=== PATIENT | female | born 1995 | race Caucasian/White ===

== ENCOUNTER 2016-03-06 13:33 | Emergency (ER) | payer MEDICAID, OTHER ==
[2016-03-06 16:41] LABS: Appearance,Urine Clear (Clear); Bilirubin,Urine Negative (Negative); Glucose,Urine (UA) Negative (Negative); Ketones,Urine Negative (Negative); Leukocyte Esterase,Urine Negative (Negative); Nitrite,Urine Negative (Negative); Protein,Urine Negative (Negative); Specific Gravity,Urine 1.013 (1.001-1.035); UA Billing (MACRO vs. MICRO) CHEM; Urobilinogen,Urine <2.0 mg/dL (<2.0)
[2016-03-06] MEDS ORDERED: SODIUM CHLORIDE 0.9% 1,000 ML IV STA (16:56)
[2016-03-06] MEDS ORDERED: HYDROmorphone 1 MG/ML 1 ML SYRINGE IVP STA (16:59)
[2016-03-06] MEDS ORDERED: ONDANSETRON 4 MG/2 ML VIAL IVP STA (16:59)
--- NOTE | 2016-03-06 17:09 | ED ---
General Adult HPI - General Chief complaint: Abdominal Pain Stated complaint: abd pain Time Seen by Provider: 03/06/16 16:24 Source: patient, RN notes reviewed Mode of arrival: ambulatory - History of Present Illness Initial comments: Patient 20-year-old female who presents emergency room today with a chief complaint of right side abdominal pain that started yesterday. She does admit to pain that is "sharp" in nature to the right flank area. Patient states never had similar symptoms in the past. Does admit to feeling nauseated. Denies any other associated symptoms or complaints. Patient denies any recent fever, chills, shortness of breath, chest pain, vomiting, numbness or tingling, dysuria or hematuria, constipation or diarrhea, headaches or visual changes, or any other complaints. - Related Data Home Medications Medication Instructions Recorded Confirmed Albuterol Nebulized [Ventolin 2.5 mg INHALATION RT-Q4H PRN 08/20/14 03/06/16 Nebulized] Albuterol Inhaler [Ventolin Hfa 2 puff INHALATION RT-Q6H PRN 03/06/16 03/06/16 Inhaler] Allergies Allergy/AdvReac Type Severity Reaction Status Date / Time No Known Allergies Allergy Verified 03/06/16 18:35 Review of Systems ROS Statement: Those systems with pertinent positive or pertinent negative responses have been documented in the HPI. ROS Other: All systems not noted in ROS Statement are negative. Past Medical History Past Medical History: Asthma, Chest Pain / Angina History of Any Multi-Drug Resistant Organisms: None Reported Past Surgical History: Section, Orthopedic Surgery, Tonsillectomy Past Anesthesia/Blood Transfusion Reactions: No Reported Reaction Past Psychological History: Anxiety, Depression, Panic Disorder Smoking Status: Never smoker Past Alcohol Use History: None Reported Past Drug Use History: None Reported General Exam - General Exam Comments Initial Comments: General: The patient is awake and alert, in no distress, and does not appear acutely ill. Eye: Pupils are equal, round and reactive to light, extra-ocular movements are intact. No nystagmus. There is normal conjunctiva bilaterally. No signs of icterus. Ears, nose, mouth and throat: There are moist mucous membranes and no oral lesions. Neck: The neck is supple, there is no tenderness or JVD. Cardiovascular: There is a regular rate and rhythm. No murmur, rub or gallop is appreciated. Respiratory: Lungs are clear to auscultation, respirations are non-labored, breath sounds are equal. No wheezes, stridor, rales, or rhonchi. Gastrointestinal: Normal appearance abdomen. Normal bowel sounds. Abdomen soft on palpation. Patient does have tenderness right lower quadrant. No rebound tenderness. No Guarding. No CVA tenderness. Musculoskeletal: Normal ROM, no tenderness. Strength 5/5. Sensation intact. Pulses equal bilaterally 2+. Neurological: A&O x 3. CN II-XII intact, There are no obvious motor or sensory deficits. Coordination appears grossly intact. Speech is normal. Skin: Skin is warm and dry and no rashes or lesions are noted. Psychiatric: Cooperative, appropriate mood & affect, normal judgment. Course Vital Signs 03/06/16 14:26 Temperature 98.1 F Pulse Rate 65 Respiratory 18 Rate Blood Pressure 128/78 O2 Sat by Pulse 99 Oximetry EKG Findings - EKG Comments: EKG Findings:: EKG performed at 1734: Shows normal sinus rhythm at 83 bpm. MT interval 128. QRS 86. QT/QTC 384/451. No acute ST changes. Medical Decision Making - Medical Decision Making Patient's ultrasound of right lower quadrant shows no evidence of appendicitis. Transvaginal also shows small amount of free fluid adjacent to the right ovary. No solid adnexal masses normal uterus and endometrium. Serial waveforms seen in the ovarian artery disease with no evidence of ovarian torsion. Results were discussed with patient. Patient's labs been reviewed. Urinalysis negative for any sign of infection. Patient's white count negative. Lactic acid negative. Patient's vital stable. No fever. Results were discussed with the patient. There is some free fluid around the right ovary. Possibility of ovarian cyst. There is family history. Patient feels comfortable at this time with no pain. Options of early appendicitis were also discussed. Sinus symptoms were discussed. Options of CAT scan of the abdomen and pelvis were discussed. At this time he feel comfortable being discharged home for outpatient follow-up the family doctor in the next 1-2 days. Advised return if there is any fever or increase or worsening of symptoms. They state understanding and are in agreement with this plan. - Lab Data Result diagrams: 03/06/16 17:50 03/06/16 17:50 Lab Results 01/01/17 01/01/17 01/01/17 Range/Units 16:31 16:31 17:50 WBC (3.8-10.6) k/uL RBC (3.80-5.40) m/uL Hgb (11.4-16.0) gm/dL Hct (34.0-46.0) % MCV (80.0-100.0) fL MCH (25.0-35.0) pg MCHC (31.0-37.0) g/dL RDW (11.5-15.5) % Plt Count (150-450) k/uL Neutrophils % % Lymphocytes % % Monocytes % % Eosinophils % % Basophils % % Neutrophils # (1.3-7.7) k/uL Lymphocytes # (1.0-4.8) k/uL Monocytes # (0-1.0) k/uL Eosinophils # (0-0.7) k/uL Basophils # (0-0.2) k/uL Sodium 141 (137-145) mmol/L Potassium 4.4 (3.5-5.1) mmol/L Chloride 108 H (98-107) mmol/L Carbon Dioxide 25 (22-30) mmol/L Anion Gap 8 mmol/L BUN 9 (7-17) mg/dL Creatinine 0.60 (0.52-1.04) mg/dL Est GFR (MDRD) Af Amer >60 (>60 ml/min/1.73 sqM) Est GFR (MDRD) Non-Af >60 (>60 ml/min/1.73 sqM) Glucose 92 (74-99) mg/dL Plasma Lactic Acid Javier (0.7-2.0) mmol/L Calcium 9.3 (8.4-10.2) mg/dL Total Bilirubin 0.4 (0.2-1.3) mg/dL AST 15 (14-36) U/L ALT 24 (9-52) U/L Alkaline Phosphatase 45 (38-126) U/L Total Protein 6.7 (6.3-8.2) g/dL Albumin 4.2 (3.5-5.0) g/dL Amylase 35 (30-110) U/L Lipase 39 (23-300) U/L Urine Color Yellow Urine Appearance Clear (Clear) Urine pH 7.0 (5.0-8.0) Ur Specific Dupont 1.013 (1.001-1.035) Urine Protein Negative (Negative) Urine Glucose (UA) Negative (Negative) Urine Ketones Negative (Negative) Urine Blood Negative (Negative) Urine Nitrate Negative (Negative) Urine Bilirubin Negative (Negative) Urine Urobilinogen <2.0 (<2.0) mg/dL Ur Leukocyte Esterase Negative (Negative) Urine HCG, Qual Not Detected (Not Detectd) 03/06/16 03/06/16 Range/Units 17:50 17:50 WBC 5.4 (3.8-10.6) k/uL RBC 4.47 (3.80-5.40) m/uL Hgb 13.9 (11.4-16.0) gm/dL Hct 41.0 (34.0-46.0) % MCV 91.7 (80.0-100.0) fL MCH 31.1 (25.0-35.0) pg MCHC 33.9 (31.0-37.0) g/dL RDW 12.2 (11.5-15.5) % Plt Count 240 (150-450) k/uL Neutrophils % 60 % Lymphocytes % 31 % Monocytes % 6 % Eosinophils % 2 % Basophils % 0 % Neutrophils # 3.2 (1.3-7.7) k/uL Lymphocytes # 1.7 (1.0-4.8) k/uL Monocytes # 0.3 (0-1.0) k/uL Eosinophils # 0.1 (0-0.7) k/uL Basophils # 0.0 (0-0.2) k/uL Sodium (137-145) mmol/L Potassium (3.5-5.1) mmol/L Chloride (98-107) mmol/L Carbon Dioxide (22-30) mmol/L Anion Gap mmol/L BUN (7-17) mg/dL Creatinine (0.52-1.04) mg/dL Est GFR (MDRD) Af Amer (>60 ml/min/1.73 sqM) Est GFR (MDRD) Non-Af (>60 ml/min/1.73 sqM) Glucose (74-99) mg/dL Plasma Lactic Acid Javier 0.8 (0.7-2.0) mmol/L Calcium (8.4-10.2) mg/dL Total Bilirubin (0.2-1.3) mg/dL AST (14-36) U/L ALT (9-52) U/L Alkaline Phosphatase (38-126) U/L Total Protein (6.3-8.2) g/dL Albumin (3.5-5.0) g/dL Amylase (30-110) U/L Lipase (23-300) U/L Urine Color Urine Appearance (Clear) Urine pH (5.0-8.0) Ur Specific Dupont (1.001-1.035) Urine Protein (Negative) Urine Glucose (UA) (Negative) Urine Ketones (Negative) Urine Blood (Negative) Urine Nitrate (Negative) Urine Bilirubin (Negative) Urine Urobilinogen (<2.0) mg/dL Ur Leukocyte Esterase (Negative) Urine HCG, Qual (Not Detectd) Disposition Clinical Impression: Abdominal pain Disposition: HOME SELF-CARE Condition: Good Instructions: Abdominal Pain (ED) Additional Instructions: Please follow-up with family doctor in the next 2 days. Please return to emergency room for any fever. Please return to emergency room if the symptoms increase or worsen or for any other concerns. Time of Disposition: 19:24
[2016-03-06 18:17] LABS: ALT 24 U/L (9-52); AST 15 U/L (14-36); Alkaline Phosphatase 45 U/L (38-126); Amylase 35 U/L (30-110); Anion Gap 8 mmol/L; Blood Urea Nitrogen 9 mg/dL (7-17); Calcium 9.3 mg/dL (8.4-10.2); Carbon Dioxide 25 mmol/L (22-30); Chloride 108 mmol/L (98-107); Glucose 92 mg/dL (74-99); Non-African American GFR(MDRD) >60 (>60 ml/min/1.73 sqM); Potassium 4.4 mmol/L (3.5-5.1); Sodium 141 mmol/L (137-145); Total Bilirubin 0.4 mg/dL (0.2-1.3); Total Protein 6.7 g/dL (6.3-8.2)
--- NOTE | 2016-03-06 18:58 | US ---
EXAMINATION TYPE: US transvaginal DATE OF EXAM: 03/06/2016 6:33 PM COMPARISON: NONE CLINICAL HISTORY: RLQ pain, . TECHNIQUE: Transvaginal (TV) with color Doppler. Date of LMP: 02/25/2016 EXAM MEASUREMENTS: Uterus: 7.1 x 4.5 x 3.8 cm Endometrial Stripe: 0.9 cm Right Ovary: 3.4 x 2.3 x 1.9 cm Left Ovary: 3.x 2.0 x 1.6 cm TECHNOLOGIST IMPRESSION: 1. Uterus: wnl 2. Endometrium: wnl 3. Right Ovary: 4. Left Ovary: wnl Spectral, color and waveform doppler imaging shows good arterial and venous flow within the ovaries ; there is no evidence for ovarian torsion. 5. Bilateral Adnexa: free fluid seen adjacent to RO 6. Posterior cul-de-sac: free fluid IMPRESSION: There is a small amount of free fluid adjacent to the right ovary. No solid adnexal mass. Normal uterus and endometrium. Normal arterial waveform is seen in the ovarian arteries with no evid ence of ovarian torsion. Normal Values: Uterine Length: < 10cm Endometrium: Proliferative (Day 6 ? 14): 4 ? 6mm Secretory (Day 15 ? 28): 7 ? 14mm Post Menopausal (and not symptomatic): up to 8mm Post Menopausal (with vaginal bleeding): upper limits <5mm Post Menopausal with HRT: upper limits 8 - 15mm Post Menopausal with tamoxifen: < 6mm (although 50% of those receiving tamoxifen have been reported t o have thickness >8mm)
--- NOTE | 2016-03-06 18:59 | US ---
EXAMINATION TYPE: US abdomen APPY DATE OF EXAM: 03/06/2016 6:05 PM COMPARISON: NONE CLINICAL HISTORY: RLQ pain. APPENDIX AP Diameter (normal < 6mm): 2.4 mm Measured outer wall to outer wall. TECHNOLOGIST IMPRESSION: Compressible tubular structure seen in RLQ IMPRESSION: The appendix is not definitely seen. There is no evidence for appendicitis. No free flui d.
[2016-03-06 19:15] LABS: Basophils % (A) 0 %; CH 31.8; CHCM 34.8; Eosinophils # (A) 0.1 k/uL (0-0.7); Eosinophils % (A) 2 %; HDW 2.65; HGB 13.9 gm/dL (11.4-16.0); Luc % (Auto) 2; Lymphocytes # (A) 1.7 k/uL (1.0-4.8); Lymphocytes % (A) 31 %; MCH 31.1 pg (25.0-35.0); MCHC 33.9 g/dL (31.0-37.0); MCV 91.7 fL (80.0-100.0); Mean Platelet Volume 7.2; Monocytes # (A) 0.3 k/uL (0-1.0); Monocytes % (A) 6 %; Neutrophils # (A) 3.2 k/uL (1.3-7.7); Neutrophils % (A) 60 %; RBC 4.47 m/uL (3.80-5.40); RDW 12.2 % (11.5-15.5); WBC 5.4 k/uL (3.8-10.6); WBC (Perox) 5.77
[2016-03-06 19:39] VITALS: BP 122/58; PULSE 87; RESP 20; TEMP 98
== END 2016-03-06 19:40 | disposition home or self-care (01) ==
LOC: EC 13:33
DX: R10.9 Unspecified abdominal pain (principal)
CPT/HCPCS: 99284; 96374; 96375; 96361 ×2; 36415; 80053; 82150; 83605; 83690; 85025; 81003; 81025; 87086; 93975; 76705; 76830; J2405; J1170

== ENCOUNTER 2016-08-20 22:18 | Emergency (ER) | payer MEDICAID ==
[2016-08-20 22:35] VITALS: RESP 18
[2016-08-20] MEDS ORDERED: IPRATROPIUM-ALBUTEROL 3 ML NEB INHALATION STA (22:41)
--- NOTE | 2016-08-20 22:44 | ED ---
URI HPI - General Chief Complaint: Upper Respiratory Infection Stated Complaint: Cough Time Seen by Provider: 08/20/16 22:30 Source: patient, RN notes reviewed Mode of arrival: ambulatory Limitations: no limitations - History of Present Illness Initial Comments: Patient is a 21-year-old female presents emergency room for evaluation of cough and congestion. Patient states she has history of asthma. Patient states that this began about 5 days ago. Patient states she's been using up to her albuterol updrafts with little relief of symptoms. Patient states her last updraft was at 8:30 PM. Patient states cough and congestion has became worse. Patient states she feels short of breath. Patient denies smoking. Patient denies fevers or chills. Patient states she feels like she has a lot of drainage in the back of her throat which is causing her to cough. Patient states she is having slight throat pain. Patient denies headache, dizziness, ear pain, chest pain, abdominal pain, nausea, vomiting. Patient states she is up-to-date on immunizations. - Related Data Home Medications Medication Instructions Recorded Confirmed Albuterol Nebulized [Ventolin 2.5 mg INHALATION RT-Q4H PRN 08/20/14 03/06/16 Nebulized] Albuterol Inhaler [Ventolin Hfa 2 puff INHALATION RT-Q6H PRN 03/06/16 03/06/16 Inhaler] Previous Rx's Medication Instructions Recorded Azithromycin [Zithromax Z-pack] 250 mg PO DIRECTED #6 tab 08/20/16 predniSONE 50 mg PO DAILY #4 tab 08/20/16 Allergies Allergy/AdvReac Type Severity Reaction Status Date / Time No Known Allergies Allergy Verified 08/20/16 22:30 Review of Systems ROS Statement: Those systems with pertinent positive or pertinent negative responses have been documented in the HPI. ROS Other: All systems not noted in ROS Statement are negative. Past Medical History Past Medical History: Asthma, Chest Pain / Angina History of Any Multi-Drug Resistant Organisms: None Reported Past Surgical History: Section, Orthopedic Surgery, Tonsillectomy Past Anesthesia/Blood Transfusion Reactions: No Reported Reaction Past Psychological History: Anxiety, Depression, Panic Disorder Smoking Status: Never smoker Past Alcohol Use History: None Reported Past Drug Use History: None Reported General Exam - General Exam Comments Initial Comments: Sitting in exam room, no acute distress. Limitations: no limitations General appearance: alert, in no apparent distress Head exam: Present: atraumatic, normocephalic, normal inspection Eye exam: Present: normal appearance ENT exam: Present: normal exam, normal oropharynx, mucous membranes moist, TM's normal bilaterally, normal external ear exam Neck exam: Present: normal inspection Respiratory exam: Present: normal lung sounds bilaterally. Absent: respiratory distress Cardiovascular Exam: Present: regular rate, normal rhythm, normal heart sounds Extremities exam: Present: normal inspection Back exam: Present: normal inspection Neurological exam: Present: alert, oriented X3, CN II-XII intact, normal gait Psychiatric exam: Present: normal affect, normal mood Skin exam: Present: warm, dry, intact, normal color. Absent: rash Course Vital Signs 08/20/16 08/20/16 08/20/16 22:31 22:53 23:03 Temperature 99.0 F Pulse Rate 83 84 84 Respiratory 18 Rate Blood Pressure 144/82 O2 Sat by Pulse 97 Oximetry Medical Decision Making - Medical Decision Making Patient's 24-year-old female presents emergency room for evaluation of cough and congestion. Patient has a history of asthma. Chest x-ray shows no acute findings. Patient states she is feeling better after nebulized treatment. Will treat patient for bronchitis. Patient placed on antibiotics and steroids. Patient states she understands everything that was discussed with her. Return parameters discussed. Case discussed with Dr. Cardoso. - Radiology Data Radiology results: report reviewed, image reviewed Disposition Clinical Impression: Asthmatic bronchitis Disposition: HOME SELF-CARE Condition: Good Instructions: Acute Bronchitis (ED) Additional Instructions: Take medications as directed. Continue with nebulizer updrafts every 4-6 hours. Please follow up with primary care provider in 1-2 days. If any new symptom arises or symptoms, return to ER as soon as possible. Prescriptions: Azithromycin [Zithromax Z-pack] 250 mg PO DIRECTED #6 tab predniSONE 50 mg PO DAILY #4 tab Referrals: Cj Holliday MD [Primary Care Provider] - 1-2 days Time of Disposition: 23:22
--- NOTE | 2016-08-20 23:16 | XR ---
INDICATION: Chest pain COMPARISON: CXR 08/20/14 FINDINGS: Frontal and lateral views of the chest are obtained. The cardiomediastinal silhouette is within normal limits. Lungs are clear. No pleural effusions. Bony elements are within normal limits. IMPRESSION: No radiographic evidence acute cardiopulmonary disease.
[2016-08-20] MEDS ORDERED: predniSONE 50 MG TAB PO STA (23:24)
[2016-08-20 23:55] VITALS: BP 126/62; PULSE 95; TEMP 98.2
== END 2016-08-20 23:53 | disposition home or self-care (01) ==
LOC: EC 22:18
DX: J45.909 Unspecified asthma, uncomplicated (principal)
CPT/HCPCS: 94640; 71020; 99283; J7512

== ENCOUNTER → 2016-08-30 | Outpatient (CLI) | payer MEDICAID ==
[2016-08-30 11:26] LABS: Basophils # (A) 0.1 k/uL (0-0.2); Basophils % (A) 0 %; CH 30.8; CHCM 33.8; Eosinophils # (A) 0.1 k/uL (0-0.7); Eosinophils % (A) 1 %; HCT 42.1 % (34.0-46.0); HDW 2.61; HGB 14.7 gm/dL (11.4-16.0); Luc # (Auto) 0.21; Luc % (Auto) 2; Lymphocytes % (A) 27 %; MCHC 34.9 g/dL (31.0-37.0); MCV 91.5 fL (80.0-100.0); Mean Platelet Volume 7.1; Monocytes # (A) 0.5 k/uL (0-1.0); Monocytes % (A) 4 %; Neutrophils # (A) 7.6 k/uL (1.3-7.7); Neutrophils % (A) 66 %; WBC 11.4 k/uL (3.8-10.6); WBC (Perox) 11.89
[2016-08-30 12:00] LABS: ALT 30 U/L (9-52); AST 17 U/L (14-36); Alkaline Phosphatase 50 U/L (38-126); Anion Gap 10 mmol/L; Blood Urea Nitrogen 14 mg/dL (7-17); Calcium 9.8 mg/dL (8.4-10.2); Carbon Dioxide 28 mmol/L (22-30); Chloride 104 mmol/L (98-107); Cholesterol 167 mg/dL (<200); Glucose 88 mg/dL (74-99); HDL Cholesterol 57 mg/dL (40-60); Non-African American GFR(MDRD) >60 (>60 ml/min/1.73 sqM); Potassium 4.6 mmol/L (3.5-5.1); Sodium 142 mmol/L (137-145); Total Bilirubin 0.7 mg/dL (0.2-1.3); Total Protein 7.2 g/dL (6.3-8.2); Triglycerides 134 mg/dL (<150)
== END | disposition home or self-care (01) ==
LOC: LABWHC1 10:57
PROVIDERS: ATTEND Physician Assistant
DX: Z00.00 Encounter for general adult medical examination without abnormal findings (principal)
CPT/HCPCS: 36415; 80053; 80061; 84439; 84443; 85025

== ENCOUNTER 2016-11-16 16:38 | Emergency (ER) | payer MEDICAID ==
[2016-11-16 16:54] VITALS: BP 132/83; PULSE 91; RESP 18; TEMP 98
--- NOTE | 2016-11-16 16:57 | ED ---
General Adult HPI - General Chief complaint: Extremity Injury, Upper Stated complaint: Hand Injury-[facility] Time Seen by Provider: 11/16/16 16:51 Source: patient, RN notes reviewed Mode of arrival: ambulatory Limitations: no limitations - History of Present Illness Initial comments: 20-year-old female presents to the emergency Department chief complaint of left thumb injury. Patient hit with a hammer at work today. Patient states it hurts to move or touch the area. Patient denies any other injuries from the incident. Patient states this was an accident. Patient denies any recent fever , chills, shortness of breath, chest pain, back pain, abdominal pain, nausea vomiting, numbness or tingling, dysuria or hematuria, constipation or diarrhea, headaches or visual changes, or any other current symptoms. - Related Data Home Medications Medication Instructions Recorded Confirmed Albuterol Nebulized [Ventolin 2.5 mg INHALATION RT-Q4H PRN 08/20/14 03/06/16 Nebulized] Albuterol Inhaler [Ventolin Hfa 2 puff INHALATION RT-Q6H PRN 03/06/16 03/06/16 Inhaler] Previous Rx's Medication Instructions Recorded Azithromycin [Zithromax Z-pack] 250 mg PO DIRECTED #6 tab 08/20/16 predniSONE 50 mg PO DAILY #4 tab 08/20/16 Allergies Allergy/AdvReac Type Severity Reaction Status Date / Time No Known Allergies Allergy Verified 11/16/16 16:49 Review of Systems ROS Statement: Those systems with pertinent positive or pertinent negative responses have been documented in the HPI. ROS Other: All systems not noted in ROS Statement are negative. Past Medical History Past Medical History: Asthma, Chest Pain / Angina History of Any Multi-Drug Resistant Organisms: None Reported Past Surgical History: Section, Orthopedic Surgery, Tonsillectomy Past Anesthesia/Blood Transfusion Reactions: No Reported Reaction Past Psychological History: Anxiety, Depression, Panic Disorder Smoking Status: Never smoker Past Alcohol Use History: None Reported Past Drug Use History: None Reported General Exam - General Exam Comments Initial Comments: General: The patient is awake and alert, in no distress, and does not appear acutely ill. Neck: The neck is supple, there is no tenderness. Cardiovascular: There is a regular rate and rhythm. No murmur, rub or gallop is appreciated. Respiratory: Lungs are clear to auscultation, respirations are non-labored, breath sounds are equal. No wheezes, stridor, rales, or rhonchi. Musculoskeletal: Sensation intact with 2+ pulses of left friction. Frontal motion of left wrist. Tenderness to patient throughout the left thumb. Find worsen all digits. No swelling or deformity noted. Neurological: CN II-XII intact, There are no obvious motor or sensory deficits. Coordination appears grossly intact. Speech is normal. Skin: Skin is warm and dry and no rashes or lesions are noted. Psychiatric: Normal mood and affect. Limitations: no limitations Course Vital Signs 11/16/16 16:46 Temperature 98.0 F Pulse Rate 91 Respiratory 18 Rate Blood Pressure 132/83 O2 Sat by Pulse 96 Oximetry Medical Decision Making - Medical Decision Making 21-year-old female presents for left thumb pain from a hammer. This time patient underwent an x-ray. This time all the patient's questions have been answered. We discussed follow-up return parameters and all the patient's concerns. He stated the Neal and plan. This will be discharged home. - Radiology Data Radiology results: report reviewed, image reviewed Disposition Clinical Impression: Contusion of left thumb Disposition: HOME SELF-CARE Condition: Stable Instructions: Contusion in Adults (ED) Additional Instructions: Please use medication as discussed. Please follow up with family doctor if symptoms have not improved over the next two days. Please return to the emergency room if your symptoms increase or worsen or for any other concerns. Referrals: Cj Holliday MD [Primary Care Provider] - 1-2 days Time of Disposition: 17:29
--- NOTE | 2016-11-16 17:17 | XR ---
EXAMINATION TYPE: XR hand complete LT DATE OF EXAM: 11/16/2016 COMPARISON: NONE HISTORY: Injury TECHNIQUE: 3 views FINDINGS: I see no fracture nor dislocation. Metacarpals are intact. There are no erosions. IMPRESSION: Negative left hand exam. The thumb appears intact.
== END 2016-11-16 17:42 | disposition home or self-care (01) ==
LOC: EC 16:38
DX: S60.012A Contusion of left thumb without damage to nail, initial encounter (principal); W22.8XXA Striking against or struck by other objects, initial encounter; Y92.69 Other specified industrial and construction area as the place of occurrence of the external cause; Y99.0 Civilian activity done for income or pay
CPT/HCPCS: 99283

== ENCOUNTER 2018-04-28 16:32 | Emergency (ER) | payer BC, MEDICAID ==
[2018-04-28] MEDS ORDERED: KETOROLAC 30 MG/ML 1 ML VIAL IVP STA (16:53)
[2018-04-28] MEDS ORDERED: SODIUM CHLORIDE 0.9% 1,000 ML IV ONE (16:53)
--- NOTE | 2018-04-28 16:55 | ED ---
Chest Pain HPI - General Chief Complaint: Chest Pain Stated Complaint: Chest pain, rapid heart rate Time Seen by Provider: 04/28/18 16:47 Source: patient Mode of arrival: wheelchair Limitations: no limitations - History of Present Illness Initial Comments: 22-year-old healthy female presenting with palpitations and chest pain that began 5 hours prior. She states has been accompanied with shortness of breath. She denies any URI symptoms or fever at home. 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 Patient denies any history of DVT, PE, active cancer, recent surgery, hormone therapy. Denies any caffeine, drug use, stimulants, smoking. Mother admits to a family history of non-provoked blood clots. - Related Data Home Medications Medication Instructions Recorded Confirmed Albuterol Nebulized [Ventolin 2.5 mg INHALATION RT-Q4H PRN 08/20/14 03/06/16 Nebulized] Albuterol Inhaler [Ventolin Hfa 2 puff INHALATION RT-Q6H PRN 03/06/16 03/06/16 Inhaler] Previous Rx's Medication Instructions Recorded Azithromycin [Zithromax Z-pack] 250 mg PO DIRECTED #6 tab 08/20/16 predniSONE 50 mg PO DAILY #4 tab 08/20/16 Allergies Allergy/AdvReac Type Severity Reaction Status Date / Time No Known Allergies Allergy Verified 04/28/18 16:38 Review of Systems ROS Statement: Those systems with pertinent positive or pertinent negative responses have been documented in the HPI. Review of Systems Constitutional: Denies fever, chills Eyes: Denies change in vision, Denies pain Ears, nose, mouth, throat: Denies headaches, Denies sore throat Cardiovascular: Positive chest pain. Positive palpitations Respiratory: Denies shortness of breath, Denies cough Gastrointestinal: Denies abdominal pain. Denies nausea, vomiting, diarrhea. Genitourinary: Denies hematuria, Denies infections Musculoskeletal: Denies pain, Denies swelling Integumentary: Denies rash Neurological: Denies headache, focal weakness, focal numbness Psychiatric: Denies anxiety, Denies depression Hematologic/Lymphatic: Denies easy bleeding or bruising ROS Other: All systems not noted in ROS Statement are negative. Past Medical History Past Medical History: Asthma, Chest Pain / Angina History of Any Multi-Drug Resistant Organisms: None Reported Past Surgical History: Section, Orthopedic Surgery, Tonsillectomy Past Anesthesia/Blood Transfusion Reactions: No Reported Reaction Past Psychological History: Anxiety, Depression, Panic Disorder Smoking Status: Never smoker Past Alcohol Use History: None Reported Past Drug Use History: None Reported General Exam - General Exam Comments Initial Comments: General: Awake, alert, No acute Distress HENT: Normocephalic. Atraumatic Eyes: PERRL. EOMI. No scleral icterus. No injected conjunctiva Neck: Full ROM Chest/Lungs: Clear to auscultation bilaterally. No wheezing, rhonchi, or rales Cardiac: Sinus tachycardia. No murmurs or rubs Abdomen/GI: Soft, nontender, nondistended. No rebound, guarding, or rigidity. Musculoskeletal: Full ROM Skin: Warm, dry, intact Neurologic: A/Ox3, no weakness, no sensory deficit, no abnormal gait, no coordination deficit Limitations: no limitations Course Vital Signs 04/28/18 04/28/18 16:36 19:15 Temperature 99.7 F H 99.8 F H Pulse Rate 108 H 79 Respiratory 18 16 Rate Blood Pressure 125/71 112/64 O2 Sat by Pulse 100 99 Oximetry Chest Pain MDM - MDM 22-year-old female presenting with palpitations and chest pain. Initial exam the patient is awake alert and she has an elevated temperature and is mildly tachycardic. She denies any dysuria, cough, sore throat. Her EKG shows normal sinus rhythm at a rate of 93 bpm without any evidence of [id number] or other abnormality. There is no ST segment elevation or depression. Her laboratory workup revealed an elevated d-dimer. Her troponin is negative and her heart score is 0. She underwent CTA which was also negative as well. Her symptoms resolved while in the department. At this time no further emergent workup indicated. Patient is stable for outpatient follow-up this week with her PCP understands return to ER precautions. - Wells Criteria Clinical Symptoms of DVT: (0) No No Alternative Diagnosis: (0) No Immobilization of Surgery in Previous 4 Weeks: (0) No Previous DVT/PE: (0) No Hemoptysis: (0) No Malignancy: (0) No Disposition Clinical Impression: Heart palpitations, Chest pain Disposition: HOME SELF-CARE Condition: Good Instructions (If sedation given, give patient instructions): Chest Pain (ED), Heart Palpitations (ED) Is patient prescribed a controlled substance at d/c from ED?: No Referrals: Cj Holliday MD [Primary Care Provider] - 1-2 days
[2018-04-28 17:44] LABS: Basophils % (A) 0 %; Eosinophils % (A) 1 %; HGB 13.9 gm/dL (11.4-16.0); Lymphocytes # (A) 0.6 k/uL (1.0-4.8); Lymphocytes % (A) 10 %; MCH 30.9 pg (25.0-35.0); MCHC 33.1 g/dL (31.0-37.0); MCV 93.4 fL (80.0-100.0); Mean Platelet Volume 7.3; Monocytes # (A) 0.3 k/uL (0-1.0); Monocytes % (A) 5 %; Neutrophils # (A) 4.7 k/uL (1.3-7.7); Neutrophils % (A) 84 %; Platelet Count 139 k/uL (150-450); RDW 12.5 % (11.5-15.5); WBC 5.6 k/uL (3.8-10.6)
[2018-04-28 17:49] LABS: Anion Gap 9 mmol/L; Blood Urea Nitrogen 10 mg/dL (7-17); Calcium 9.3 mg/dL (8.4-10.2); Carbon Dioxide 25 mmol/L (22-30); Chloride 105 mmol/L (98-107); Glucose 110 mg/dL (74-99); Potassium 4.2 mmol/L (3.5-5.1); Sodium 139 mmol/L (137-145)
--- NOTE | 2018-04-28 19:03 | XR ---
EXAMINATION TYPE: XR chest 2V DATE OF EXAM: 04/28/2018 COMPARISON: NONE HISTORY: Chest pain TECHNIQUE: Frontal and lateral views of the chest are obtained. FINDINGS: There is no focal air space opacity, pleural effusion, or pneumothorax seen. The cardiac silhouette size is within normal limits. The osseous structures are intact. IMPRESSION: No acute cardiopulmonary process.
--- NOTE | 2018-04-28 19:06 | CT ---
EXAMINATION TYPE: CT chest angio for PE DATE OF EXAM: 04/28/2018 COMPARISON: NONE HISTORY: Chest pain CT DLP: 158.3 mGycm. Automated Exposure Control for Dose Reduction was Utilized. CONTRAST: CTA scan of the thorax is performed with IV Contrast, patient injected with 100 mL of Isovue 370, pul monary embolism protocol. MIP Images are created on CT scanner and reviewed. FINDINGS: LUNGS: The lungs are grossly clear, there is no concerning parenchymal mass or nodule identified. T here is no pleural effusion or pneumothorax seen. The tracheobronchial tree is patent. MEDIASTINUM: There is satisfactory enhancement of the pulmonary artery and its branches, there is no CT evidence for pulmonary embolism. There are no greater than 1 cm hilar or mediastinal lymph nodes. No cardiomegaly or pericardial effusion is seen. OTHER: No additional significant abnormality is seen. IMPRESSION: No pulmonary embolism. Normal study.
[2018-04-28 19:16] VITALS: BP 112/64; PULSE 79; RESP 16; TEMP 99.8
== END 2018-04-28 20:10 | disposition home or self-care (01) ==
LOC: EC 16:32
DX: R07.9 Chest pain, unspecified (principal); R00.2 Palpitations; R00.0 Tachycardia, unspecified; R79.1 Abnormal coagulation profile; R50.9 Fever, unspecified; J45.909 Unspecified asthma, uncomplicated
CPT/HCPCS: 36415; 93005; 85379; 83880; 80048; 84443; 84484; 85025; 84703; 87502; 71046; 71275; 99285; 96374; 96361 ×2; J1885; Q9967

== ENCOUNTER 2018-12-07 11:13 | Emergency (ER) | payer BC, MEDICAID ==
[2018-12-07] MEDS ORDERED: DEXAMETHASONE SOD PHOSPHATE 10 MG/ML 1 ML VIAL IV STA (12:00)
[2018-12-07] MEDS ORDERED: diphenhydrAMINE 50 MG/ML 1 ML VIAL IVP STA (12:00)
[2018-12-07] MEDS ORDERED: SODIUM CHLORIDE 0.9% 1,000 ML IV STA (12:00)
[2018-12-07] MEDS ORDERED: METOCLOPRAMIDE 5 MG/ML 2 ML VIAL IVP STA (12:00)
[2018-12-07] MEDS ORDERED: MAGNESIUM SULFATE-D5W PMX 1 GM in DEXTROSE/WATER 1 100ML.BAG IVPB ONE (12:00)
[2018-12-07 12:30] LABS: Basophils % (A) 0 %; Eosinophils # (A) 0.4 k/uL (0-0.7); Eosinophils % (A) 6 %; HCT 40.1 % (34.0-46.0); Lymphocytes # (A) 1.5 k/uL (1.0-4.8); Lymphocytes % (A) 21 %; MCH 31.9 pg (25.0-35.0); MCHC 34.9 g/dL (31.0-37.0); MCV 91.4 fL (80.0-100.0); Mean Platelet Volume 6.1; Monocytes # (A) 0.3 k/uL (0-1.0); Monocytes % (A) 4 %; Neutrophils # (A) 4.8 k/uL (1.3-7.7); Neutrophils % (A) 67 %; Platelet Count 278 k/uL (150-450); RBC 4.38 m/uL (3.80-5.40); RDW 11.9 % (11.5-15.5); WBC 7.2 k/uL (3.8-10.6)
[2018-12-07 12:44] LABS: ALT 13 U/L (9-52); AST 18 U/L (14-36); African American GFR (CKD) >90 (>60 ml/min/1.73 sqM); Albumin 4.3 g/dL (3.5-5.0); Alkaline Phosphatase 49 U/L (38-126); Anion Gap 7 mmol/L; Blood Urea Nitrogen 13 mg/dL (7-17); Calcium 9.3 mg/dL (8.4-10.2); Carbon Dioxide 28 mmol/L (22-30); Chloride 106 mmol/L (98-107); Glucose 79 mg/dL (74-99); Potassium 4.6 mmol/L (3.5-5.1); Sodium 141 mmol/L (137-145); Total Bilirubin 0.5 mg/dL (0.2-1.3); Total Protein 7.2 g/dL (6.3-8.2)
[2018-12-07 13:33] VITALS: RESP 18
--- NOTE | 2018-12-07 14:21 | CT ---
EXAMINATION TYPE: CT brain wo con DATE OF EXAM: 12/07/2018 COMPARISON: 07/12/2013 HISTORY: Headache CT DLP: 1025.4 mGycm. Automated Exposure Control for Dose Reduction was Utilized. TECHNIQUE: CT scan of the head is performed without contrast. FINDINGS: There is no acute intracranial hemorrhage, mass effect, or midline shift identified. The ventricles and sulci are within normal limits in size. No suspicious extra-axial fluid collection. The globes are intact and the visualized sinuses are clear. Punctate focus of calcification is noted within the basilar artery, incidental finding. There is near complete opacification of the left maxil camila sinus secondary to mucosal thickening with an air-fluid level indicating acuity. There is modera te mucosal thickening in the right maxillary sinus also containing an air-fluid level. Circumferentia l mucosal thickening is seen bilaterally. There is very mild leftward nasal septal deviation and a sm all leftward nasal septal spur. There is moderate to severe mucosal thickening in the inferior ethmoi d sinuses improving in the superior ethmoid sinuses 3 trace amount of fluid is seen in the inferior f rontal sinuses and moderate mucosal thickening with air-fluid levels in the sphenoid sinus. Mastoid a ir cells appear well aerated. Cerebellar tonsils are noted to be low-lying incidentally without herni ation. IMPRESSION: 1. Severe acute pansinusitis. 2. No acute intracranial hemorrhage, mass effect, or midline shift is seen.
--- NOTE | 2018-12-07 15:32 | ED ---
Headache HPI - General Chief Complaint: Headache Stated Complaint: nausea Time Seen by Provider: 12/07/18 11:36 Mode of arrival: ambulatory Limitations: no limitations - History of Present Illness Initial Comments: The patient is a 23-year-old female who presents to the emergency department with reported headache 6 weeks. She states that it is intermittent in nature. States that she will have it most days. She normally does not take any medications to alleviate her symptoms. Denies any inciting head trauma. No sudden onset or maximal intensity. Denies any associated visual changes. No neck pain or stiffness. No fevers or chills. Denies any sick contacts or recen t travel. Normally does not get headaches however this is not the worse headache of her life. Does admit to facial pressure and bilateral ear pain. Denies sore throat or cough. No chest pain or shortness of breath. Denies possibly . No seen. Her presyncopal sensations. Denies any un ilateral numbness or weakness. Denies any abdominal pain or changes in her bowel or bladder habits. Denies chiropractic manipulations of the neck. No family history of polycystic kidney disease or aneurysms. There are no other alleviating, precipitating or modifying factors - Related Data Previous Rx's Medication Instructions Recorded Amoxic-Pot Clav 875-125Mg 1 tab PO Q12HR #14 tablet 12/07/18 [Augmentin 875-125] Allergies Allergy/AdvReac Type Severity Reaction Status Date / Time No Known Allergies Allergy Verified 12/07/18 14:25 Review of Systems ROS Statement: Those systems with pertinent positive or pertinent negative responses have been documented in the HPI. ROS Other: All systems not noted in ROS Statement are negative. Past Medical History Past Medical History: Asthma, Chest Pain / Angina History of Any Multi-Drug Resistant Organisms: None Reported Past Surgical History: Section, Orthopedic Surgery, Tonsillectomy Past Anesthesia/Blood Transfusion Reactions: No Reported Reaction Past Psychological History: Anxiety, Depression, Panic Disorder Smoking Status: Never smoker Past Alcohol Use History: None Reported Past Drug Use History: None Reported General Exam Limitations: no limitations General appearance: alert, in no apparent distress Head exam: Present: atraumatic, normocephalic, normal inspection Eye exam: Present: normal appearance, PERRL, EOMI. Absent: scleral icterus, conjunctival injection, periorbital swelling ENT exam: Present: normal exam, mucous membranes moist Neck exam: Present: normal inspection. Absent: tenderness, meningismus, lymphadenopathy Respiratory exam: Present: normal lung sounds bilaterally. Absent: respiratory distress, wheezes, rales, rhonchi, stridor Cardiovascular Exam: Present: regular rate, normal rhythm, normal heart sounds. Absent: systolic murmur, diastolic murmur, rubs, gallop, clicks GI/Abdominal exam: Present: soft, normal bowel sounds. Absent: distended, tenderness, guarding, rebound, rigid Extremities exam: Present: normal inspection, full ROM, normal capillary refill. Absent: tenderness, pedal edema, joint swelling, calf tenderness Back exam: Present: normal inspection Neurological exam: Present: alert, oriented X3, CN II-XII intact Psychiatric exam: Present: normal affect, normal mood Skin exam: Present: warm, dry, intact, normal color. Absent: rash Course Vital Signs 12/07/18 12/07/18 12/07/18 11:27 13:30 15:46 Temperature 98.3 F 97.9 F Pulse Rate 68 69 70 Respiratory 16 18 18 Rate Blood Pressure 135/80 119/97 115/67 O2 Sat by Pulse 100 98 99 Oximetry Medical Decision Making - Medical Decision Making Upon arrival, the patient was placed in room 20. A thorough history and physical exam was performed. Peripheral IV is established and the patient is given 10 mg of Decadron, 25 mg of Benadryl, 1 g of magnesium, 10 mg of Reglan and a liter of normal saline. Laboratories his were conducted. The patient is having persistent headache for 6 weeks ago did recommend imaging for which the patient did agree. Upon return of the laboratory results CBC, CMP is negative. is not detected. Head CT demonstrates acute pansinusitis. No signs of mass or midline shift. I discussed these results the patient. She does admit to improvement in her headache. It is now graded as a 2 out of 10. I recommended treating the patient for acute sinusitis with Augmentin. I did provide her with information for Dr. Smyth. I informed that she needs to follow up with him sometime next week. If the patient has continued headaches after treatment she may require evaluation by a neurologist and even MRI. The patient understood this and she has any new or worsening symptoms she should return to the emergency room. Patient was discharged in stable condition - Lab Data Result diagrams: 12/07/18 12:10 12/07/18 12:10 Lab Results 12/07/18 12/07/18 12/07/18 Range/Units 12:10 12:10 12:55 WBC 7.2 (3.8-10.6) k/uL RBC 4.38 (3.80-5.40) m/uL Hgb 14.0 (11.4-16.0) gm/dL Hct 40.1 (34.0-46.0) % MCV 91.4 (80.0-100.0) fL MCH 31.9 (25.0-35.0) pg MCHC 34.9 (31.0-37.0) g/dL RDW 11.9 (11.5-15.5) % Plt Count 278 (150-450) k/uL Neutrophils % 67 % Lymphocytes % 21 % Monocytes % 4 % Eosinophils % 6 % Basophils % 0 % Neutrophils # 4.8 (1.3-7.7) k/uL Lymphocytes # 1.5 (1.0-4.8) k/uL Monocytes # 0.3 (0-1.0) k/uL Eosinophils # 0.4 (0-0.7) k/uL Basophils # 0.0 (0-0.2) k/uL Sodium 141 (137-145) mmol/L Potassium 4.6 (3.5-5.1) mmol/L Chloride 106 (98-107) mmol/L Carbon Dioxide 28 (22-30) mmol/L Anion Gap 7 mmol/L BUN 13 (7-17) mg/dL Creatinine 0.66 (0.52-1.04) mg/dL Est GFR (CKD-EPI)AfAm >90 (>60 ml/min/1.73 sqM) Est GFR (CKD-EPI)NonAf >90 (>60 ml/min/1.73 sqM) Glucose 79 (74-99) mg/dL Calcium 9.3 (8.4-10.2) mg/dL Total Bilirubin 0.5 (0.2-1.3) mg/dL AST 18 (14-36) U/L ALT 13 (9-52) U/L Alkaline Phosphatase 49 (38-126) U/L Total Protein 7.2 (6.3-8.2) g/dL Albumin 4.3 (3.5-5.0) g/dL TSH 0.931 (0.465-4.680) mIU/L Urine HCG, Qual Not Detected (Not Detectd) Disposition Clinical Impression: Headache, Sinusitis, acute Disposition: HOME SELF-CARE Condition: Stable Instructions (If sedation given, give patient instructions): Sinusitis (ED) Additional Instructions: Please follow-up with your primary care doctor in 2-4 days. Follow up with the ear nose and throat doctor within 1 week. Return to the emergency room for any new or worsening symptoms Prescriptions: Amoxic-Pot Clav 875-125Mg [Augmentin 875-125] 1 tab PO Q12HR #14 tablet Is patient prescribed a controlled substance at d/c from ED?: No Referrals: Cj Holliday MD [Primary Care Provider] - 1-2 days Joel Smyth MD [STAFF PHYSICIAN] - 1-2 days Time of Disposition: 15:32
[2018-12-07 15:46] VITALS: BP 115/67; PULSE 70; TEMP 97.9
== END 2018-12-07 15:46 | disposition home or self-care (01) ==
LOC: EC 11:13
DX: J01.40 Acute pansinusitis, unspecified (principal); H92.03 Otalgia, bilateral
CPT/HCPCS: 99284; 96365; 96375 ×3; 96361; 36415; 80053; 84443; 85025; 81025; 70450; J1200; J1100; J2765; J3475

== ENCOUNTER 2019-11-02 16:26 | Emergency (ER) | payer OTHER ==
[2019-11-02 17:02] VITALS: BP 137/81; PULSE 75; RESP 18; TEMP 99.1
--- NOTE | 2019-11-02 17:04 | ED ---
Skin/Abscess/FB HPI - General Chief complaint: Skin/Abscess/Foreign Body Stated complaint: Chest Abscess Time Seen by Provider: 11/02/19 16:47 Source: patient Mode of arrival: ambulatory Limitations: no limitations - History of Present Illness Initial comments: 24-year-old female presenting for possible chest abscess. Patient states she's had lesion on the center her chest is been there for about a year. Patient states she was concerned she has her wedding, and wanted to be evaluated. Family was concerned of cancer patient denies any additional symptoms or any recent negative denies any chills fevers general malaise.. - Related Data Previous Rx's Medication Instructions Recorded Amoxic-Pot Clav 875-125Mg 1 tab PO Q12HR #14 tablet 12/07/18 [Augmentin 875-125] Allergies Allergy/AdvReac Type Severity Reaction Status Date / Time No Known Allergies Allergy Verified 11/02/19 16:58 Review of Systems ROS Statement: Those systems with pertinent positive or pertinent negative responses have been documented in the HPI. ROS Other: All systems not noted in ROS Statement are negative. Past Medical History Past Medical History: Asthma, Chest Pain / Angina History of Any Multi-Drug Resistant Organisms: None Reported Past Surgical History: Section, Orthopedic Surgery, Tonsillectomy Past Anesthesia/Blood Transfusion Reactions: No Reported Reaction Past Psychological History: Anxiety, Depression, Panic Disorder Smoking Status: Never smoker Past Alcohol Use History: None Reported Past Drug Use History: None Reported General Exam - General Exam Comments Initial Comments: General: The patient is awake and alert, in no distress, and does not appear acutely ill. Eye: +3 mm pupils are equal, round and reactive to light, extra-ocular movements are intact. No nystagmus. There is normal conjunctiva bilaterally. No signs of icterus. Ears, nose, mouth and throat: There are moist mucous membranes and no oral lesions. Neck: The neck is supple, there is no tenderness or JVD. Musculoskeletal: Normal ROM, no tenderness. Strength 5/5. Sensation intact. Radial pulses equal bilaterally 2+. Neurological: A&O x 3. CN II-XII intact grossly, There are no obvious motor or sensory deficits. Coordination appears grossly intact. Speech is normal. Skin: Skin is warm and dry and no rashes. Circular raised, pearly rounded, moist appearing lesions, noted vascularity within lesion. roughly 1cm Psychiatric: Cooperative, appropriate mood & affect, normal judgment. Limitations: no limitations Course Vital Signs 11/02/19 16:56 Temperature 99.1 F Pulse Rate 75 Respiratory 18 Rate Blood Pressure 137/81 O2 Sat by Pulse 100 Oximetry Medical Decision Making - Medical Decision Making appearance concerning for basal cell carcinoma vs pyogenic granuloma, recommend outpatient biopsy with evaluation in next week. Pt is to f/u with both pcp and dermatology. Patient discharged appearing well after discussing case with Dr. Simpson who is agreeable to care plan. Disposition Clinical Impression: Skin lesion of chest wall Disposition: HOME SELF-CARE Condition: Good Instructions (If sedation given, give patient instructions): Basal Cell Carcinoma (DC), Skin Cancer Prevention (ED) Additional Instructions: Please use medication as discussed. Please follow-up with family doctor in the next 2 days, as well as [employer] IN THE NEXT WEEK, NEED BIOPSY TO RULE OUT BASAL CELL CARCINOMA. Please return to emergency room if the symptoms increase or worsen or for any other concerns. Is patient prescribed a controlled substance at d/c from ED?: No Referrals: Cj Holliday MD [Primary Care Provider] - 1-2 days Nelsy Lui MD [STAFF PHYSICIAN] - 1-2 days Pauline Lui MD [STAFF PHYSICIAN] - 1-2 days Giuliano Meek MD [REFERRING] - 1-2 days Demian Hagen MD [STAFF PHYSICIAN] - 1-2 days Mey Crews MD [REFERRING] - 1-2 days Time of Disposition: 16:59
== END 2019-11-02 17:10 | disposition home or self-care (01) ==
LOC: EC 16:26
DX: L98.9 Disorder of the skin and subcutaneous tissue, unspecified (principal)
CPT/HCPCS: 99282

== ENCOUNTER 2019-12-08 01:02 | Emergency (ER) | payer OTHER ==
[2019-12-08 01:14] VITALS: PULSE 64; RESP 16; TEMP 98.2
[2019-12-08] MEDS ORDERED: ONDANSETRON ODT 4 MG TAB PO STA (01:22)
--- NOTE | 2019-12-08 03:18 | ED ---
Alcohol HPI - General Chief Complaint: Alcohol Stated Complaint: ETOH Time Seen by Provider: 12/08/19 01:05 Source: patient, EMS Mode of arrival: EMS Limitations: altered mental status - History of Present Illness Initial Comments: Patient is 24-year-old woman brought for evaluation after she had had a number of alcoholic beverages and then became less responsive and did have some vomiting. On arrival, patient is able to state that she is feeling better. She denies complaints. She denies any fall or injury. MD Complaint: alcohol intoxication Last Drink: just [employer] -: hour(s) Previous Visits for Alcohol Intoxication?: No Recent Trauma: No Associated Symptoms: nausea, vomiting Chronic Alcohol Use: No - Related Data Previous Rx's Medication Instructions Recorded Amoxic-Pot Clav 875-125Mg 1 tab PO Q12HR #14 tablet 12/07/18 [Augmentin 875-125] Allergies Allergy/AdvReac Type Severity Reaction Status Date / Time No Known Allergies Allergy Verified 12/08/19 01:14 Review of Systems ROS Statement: Those systems with pertinent positive or pertinent negative responses have been documented in the HPI. ROS Other: All systems not noted in ROS Statement are negative. Constitutional: Denies: fever, chills Respiratory: Denies: cough, dyspnea Cardiovascular: Denies: chest pain, palpitations Gastrointestinal: Reports: nausea, vomiting. Denies: abdominal pain, diarrhea, hematemesis Genitourinary: Denies: dysuria, hematuria Musculoskeletal: Denies: back pain Neurological: Denies: headache, weakness Past Medical History Past Medical History: Asthma, Chest Pain / Angina History of Any Multi-Drug Resistant Organisms: None Reported Past Surgical History: Section, Orthopedic Surgery, Tonsillectomy Past Anesthesia/Blood Transfusion Reactions: No Reported Reaction Past Psychological History: Anxiety, Depression, Panic Disorder Smoking Status: Never smoker Past Alcohol Use History: Occasional Past Drug Use History: None Reported General Exam General appearance: alert, in no apparent distress, appears intoxicated Head exam: Present: atraumatic, normocephalic Eye exam: Present: normal appearance. Absent: scleral icterus, conjunctival injection Neck exam: Present: normal inspection, full ROM. Absent: tenderness Respiratory exam: Present: normal lung sounds bilaterally. Absent: respiratory distress, wheezes, rales, rhonchi, stridor Cardiovascular Exam: Present: regular rate, normal rhythm, normal heart sounds. Absent: systolic murmur, diastolic murmur, rubs, gallop GI/Abdominal exam: Present: soft. Absent: distended, tenderness, guarding, rebound, rigid, mass Extremities exam: Present: normal inspection, normal capillary refill. Absent: pedal edema, calf tenderness Back exam: Present: normal inspection. Absent: CVA tenderness (R), CVA tenderness (L) Neurological exam: Present: alert Skin exam: Present: warm, dry, intact, normal color. Absent: rash Course Vital Signs 12/08/19 12/08/19 01:09 03:49 Temperature 98.2 F 98.2 F Pulse Rate 64 64 Respiratory 16 16 Rate Blood Pressure 110/63 96/53 O2 Sat by Pulse 100 100 Oximetry Disposition Clinical Impression: Alcoholic intoxication Disposition: HOME SELF-CARE Condition: Good Instructions (If sedation given, give patient instructions): Alcohol Intoxication (ED) Is patient prescribed a controlled substance at d/c from ED?: No Referrals: Cj Holliday MD [Primary Care Provider] - 1-2 days
[2019-12-08 03:50] VITALS: BP 96/53
== END 2019-12-08 03:55 | disposition home or self-care (01) ==
LOC: EC 01:02
DX: F10.129 Alcohol abuse with intoxication, unspecified (principal); Y90.9 Presence of alcohol in blood, level not specified
CPT/HCPCS: 99283

== ENCOUNTER → 2020-08-10 | Outpatient (CLI) | payer BC, OTHER ==
--- NOTE | 2020-08-12 11:38 | US ---
EXAMINATION TYPE: US OB <= 14 wk fetus DATE OF EXAM: 08/12/2020 COMPARISON: None CLINICAL HISTORY: Z36 CONFIRM DATES positive beta-hCG test TECHNIQUE: Transabdominal (TA) GESTATIONAL AGE / DATING Physician Established: Not yet established Dates by LMP: LMP unknown Dates by First Scan: No previous this is first scan Dates by Current Scan: (13 weeks/5 days) EDC: 02/10/2021 UTERUS 14.1 X 5.8 X 10.0 CM RT OVARY OBSCURED BY BOWEL GAS LT OVARY OBSCURED BY BOWEL GAS HEART RATE: 163 bpm RHYTHM: Normal BPD 2.9CM 13W5D HC 8.52CM 13W6D AC 6.44CM 13W1D FL 1.22CM 13VIABLE IUP VIABLE IUP Single live intrauterine gestation as gestational sac and pole seen. Yolk sac not identified. N o free fluid in pelvic cul-de-sac. Neither ovary seen. No adnexal masses noted. biometry measurements congruent and within normal limits. IMPRESSION: Single live intrauterine gestation, mean biparietal diameter 2.9 cm corresponding to 13 w torres martinez 5 day old fetus.
== END | disposition home or self-care (01) ==
LOC: RADUSWWP 15:47
PROVIDERS: ATTEND Obstetrics & Gynecology
DX: Z36.89 Encounter for other specified antenatal screening (principal); Z3A.13 13 weeks gestation of pregnancy
CPT/HCPCS: 76801; 76805